=== PATIENT | female | born 1945 | race Caucasian/White ===

== ENCOUNTER 2021-10-08 10:36 | Outpatient (CLI) | payer MEDICARE | END 2021-10-08 10:37 | disposition home or self-care (01) | LOC: ULT 10:36 | PROVIDERS: ATTEND Family Medicine | DX: R10.11 Right upper quadrant pain (principal); K80.20 Calculus of gallbladder without cholecystitis without obstruction | CPT/HCPCS: 76705 ==

== ENCOUNTER 2021-10-20 08:00 | Outpatient (CLI) | payer MEDICARE | END 2021-10-20 08:01 | disposition home or self-care (01) | LOC: CT 08:00 | PROVIDERS: ATTEND Family Medicine | DX: M50.01 Cervical disc disorder with myelopathy, high cervical region (principal); M50.11 Cervical disc disorder with radiculopathy, high cervical region; M47.22 Other spondylosis with radiculopathy, cervical region; R42 Dizziness and giddiness; M48.02 Spinal stenosis, cervical region; W19.XXXS Unspecified fall, sequela | CPT/HCPCS: 70450; 72125 ==

== ENCOUNTER 2022-01-18 08:32 | Outpatient (CLI) | payer MEDICARE ==
[2022-01-18 10:02] LABS: #Basophils 0.1 10x3/uL (0.0-0.2); #Eosinphils 0.2 10x3/uL (0.0-0.5); #Monocytes 0.7 10x3/uL (0.0-1.1); #Neutrophils 3.5 10x3/uL (1.5-8.4); %Basophils 0.9 % (0.0-2.0); %Eosinophils 2.5 % (0.0-6.0); %Lymphocytes 35.9 % (18.0-47.0); %Monocytes 9.8 % (0.0-10.0); %Neutrophils 50.6 % (40.0-75.0); Hemoglobin 13.8 g/dL (12.0-15.5); Mean Corpuscular Hemoglobin 33.1 pg (27.0-33.0); Mean Corpuscular Volume 97.4 fl (81.6-98.3); Mean Platelet Volume 9.8 fl (7.4-10.4); Platelet Count 287 10x3/uL (150-450); RBC Distribution Width 12.2 % (11.5-14.5); Red Blood Cell (RBC) Count 4.17 10x6/uL (3.90-5.03); White Blood Cell (WBC) Count 6.8 10x3/uL (3.5-10.5)
[2022-01-18 10:22] LABS: ALT (SGPT) 26 U/L (8-55); AST (SGOT) 21 U/L (5-34); Alkaline Phosphatase 43 U/L (40-110); Anion Gap 17 mmol/L (10-20); BUN (Urea Nitrogen) 19 mg/dL (9.8-20.1); Bilirubin, Direct 0.4 mg/dL (0.1-0.3); Bilirubin, Total 1.3 mg/dL (0.2-1.2); Calc. Creatinine Clearance 0 mL/min (70-130); Calcium 10.3 mg/dL (7.8-10.44); Carbon Dioxide 24 mmol/L (23-31); Chloride 103 mmol/L (98-107); Estimated GFR 73; Glucose 99 mg/dL (83-110); Potassium 4.7 mmol/L (3.5-5.1); Protein, Total 7.7 g/dL (5.8-8.1); Sodium 139 mmol/L (136-145)
== END 2022-01-18 08:33 | disposition home or self-care (01) ==
LOC: LABBT 08:32
PROVIDERS: ATTEND Surgery
DX: Z01.812 Encounter for preprocedural laboratory examination (principal); K80.20 Calculus of gallbladder without cholecystitis without obstruction; Z20.822 Contact with and (suspected) exposure to COVID-19
CPT/HCPCS: 80048; 80076; 85025; 87811; 93005; 93010

== ENCOUNTER 2022-01-20 05:33 | Day surgery (SDC) | payer MEDICARE ==
[2022-01-18 11:11] VITALS: BMI 23.7
[2022-01-20] MEDS ORDERED: Sodium Chloride 0.9% 0 ML ONE (05:58)
[2022-01-20] MEDS ORDERED: cefOXitin 2 GM VIAL ONE (05:58)
[2022-01-20] MEDS ORDERED: Lidocaine 1% MPF 2 ML VIAL ONE ×2 (05:58→07:32)
[2022-01-20] MEDS ORDERED: Sodium Chloride 0.9% 100 ML ONE (05:59)
[2022-01-20] MEDS ORDERED: fentaNYL Citrate/PF 100 MCG/2 ML SYRINGE ONE (06:18)
[2022-01-20] MEDS ORDERED: Bupivacaine/Epinephrine 0.25% 30 ML VIAL ONE (06:38)
[2022-01-20] MEDS ORDERED: Famotidine/PF 20 mg/2ml Vial ONE (07:18)
[2022-01-20] MEDS ORDERED: Iopamidol 30 ML ONE (07:25)
[2022-01-20] MEDS ORDERED: Glycopyrrolate 0.2 MG/ML 5 ML SYRINGE ONE (07:32)
[2022-01-20] MEDS ORDERED: PROPOFOL 200 MG/20 ML VIAL ONE (07:32)
[2022-01-20] MEDS ORDERED: NEOSTIGMINE 3 MG/3 ML SYR 3 MG/3 ML SYRINGE ONE (07:32)
[2022-01-20] MEDS ORDERED: Dexamethasone 20 MG/5 ML VIAL ONE (07:32)
[2022-01-20] MEDS ORDERED: Rocuronium Bromide 10 MG/ML (10ML VIAL) ONE (07:32)
[2022-01-20] MEDS ORDERED: Ondansetron PF 4 MG/2 ML Vial ONE (07:32)
[2022-01-20] MEDS ORDERED: Fentanyl 100 MCG/2 ML VIAL ONE (08:34)
== END 2022-01-20 10:29 | disposition home or self-care (01) ==
LOC: SDC 05:33
PROVIDERS: ATTEND Surgery
PROC: 0FT44ZZ Resection of Gallbladder, Percutaneous Endoscopic Approach (ICD-10-PCS; principal; 2022-01-20)
PROC: BF101ZZ Fluoroscopy of Bile Ducts using Low Osmolar Contrast (ICD-10-PCS; 2022-01-20)
DX: K80.10 Calculus of gallbladder with chronic cholecystitis without obstruction (principal); I10 Essential (primary) hypertension; E78.5 Hyperlipidemia, unspecified; E03.9 Hypothyroidism, unspecified; Z86.16 Personal history of COVID-19; Z79.890 Hormone replacement therapy; Z79.899 Other long term (current) drug therapy; Z88.1 Allergy status to other antibiotic agents
CPT/HCPCS: 47532; 88304; C1713; J0694; J1100; J2405; J2704; J3010; J3490; Q9967; S0028